=== PATIENT | female | born 1990 | race Caucasian/White ===

== ENCOUNTER 2022-06-03 13:08 | Day surgery (SDC) | payer OTHER ==
[~2022-06-03 13:08] MED LIST: Acetaminophen 500 MG TAB PO SCH; Ferumoxytol (NON ERSD) 510 MG in Sodium Chloride 0.9% 250 ML 150 ML IVPB SCH
[2022-06-03] MEDS ORDERED: Acetaminophen 500 MG TAB ONE (13:11)
[2022-06-03 14:59] VITALS: BP 118/72; TEMP 98.6
== END 2022-06-03 15:45 | disposition home or self-care (01) ==
LOC: ONC/OP 13:08
PROVIDERS: ATTEND Student in an Organized Health Care Education/Training Program
DX: K90.9 Intestinal malabsorption, unspecified (principal)
CPT/HCPCS: 96365; J7050; Q0138

== ENCOUNTER 2022-07-09 13:28 | Outpatient (CLI) | payer OTHER | END 2022-07-09 13:29 | disposition home or self-care (01) | LOC: SCSMRI 13:28 | PROVIDERS: ATTEND Student in an Organized Health Care Education/Training Program | DX: R53.1 Weakness (principal) | CPT/HCPCS: 70551 ==